=== PATIENT | male | born 1990 | race Caucasian/White ===

== ENCOUNTER 2020-12-14 12:08 | Outpatient (REF) | payer OTHER, SELFPAY ==
[2020-12-14 12:50] LABS: MANUAL DIFF FLAG NO
[2020-12-14 12:56] LABS: Basophils Absolute Auto 0.1 X10*3/uL (0.0-0.2); Basophils Percent Auto 1.1 % (0-2); Eosinophils Absolute Auto 0.4 X10*3/uL (0.0-0.4); Eosinophils Percent Auto 5.1 % (0-4); Hematocrit 44.3 % (42-52); Hemoglobin 14.9 g/dl (14.0-18.0); Imm Gran Abs Auto 0.01 X10*3/uL (0.00-0.03); Imm Gran Pct Auto 0.1 % (0.0-0.4); Lymphocytes Absolute Auto 2.8 X10*3/uL (1.2-4.9); Lymphocytes Percent Auto 34.2 % (20-40); Mean Corpuscular HGB Conc 33.6 g/dl (31.0-36.0); Mean Corpuscular Hemoglobin 29.9 pg (27.0-33.0); Mean Corpuscular Volume 88.8 fL (80-98); Mean Platelet Volume 10.5 fL (9.4-12.4); Monocytes Absolute Auto 0.6 X10*3/uL (0.1-1.2); Monocytes Percent Auto 7.6 % (2-11); Neutrophils Absolute Auto 4.2 X10*3/uL (2.0-8.3); Neutrophils Percent Auto 51.9 % (45-73); Platelet Count 262 X10*3/uL (160-400); Red Blood Count 4.99 X10*6/uL (4.60-5.80); Red Cell Distribution Width 12.6 % (11.0-16.0); White Blood Count 8.1 X10*3/uL (4.8-10.8)
[2020-12-14 13:22] LABS: Anion Gap 11 (12-20); Blood Urea Nitrogen 8 mg/dL (9-16); Calcium 9.9 mg/dL (8.4-10.2); Carbon Dioxide 28 mmol/L (22-29); Chloride 104 mmol/L (96-108); Cholesterol 167 mg/dL; Estimated Glomerular Filt Rate > 60; Glucose Random 69 mg/dL (60-115); Potassium 4.3 mmol/L (3.3-5.1); Sodium 139 mmol/L (135-145)
== END 2020-12-14 12:09 | disposition home or self-care (01) ==
LOC: HO.LAB 12:08
PROVIDERS: PCP Internal Medicine; Visit Provider Internal Medicine
DX: Z00.00 Encounter for general adult medical examination without abnormal findings (principal)
CPT/HCPCS: 36415; 80048; 82465; 85025

== ENCOUNTER 2021-04-05 22:27 | Emergency (ER) | payer OTHER, SELFPAY ==
[2021-04-05 22:29] VITALS: BP 144/83; PULSE 75; RESP 20; TEMP 36.8; O2SAT 100; BMI 22.6
--- NOTE | 2021-04-05 22:47 | ED.GENADULT ---
HPI - General Adult General Chief complaint: General Medical Stated complaint: reaction to anesthesia Time Seen by Provider: 04/05/21 22:38 Source: patient Mode of arrival: ambulatory History of Present Illness HPI narrative: 30-year-old male a past medical history of anxiety, opiate addiction on Suboxone, s/p dental surgery this morning at [facility], presenting to the ED complaining of persistent nausea, vomiting, abdominal discomfort s/p general anesthesia with inability to tolerate p.o. reports has not had anything to eat since yesterday prior to surgery. States had multiple teeth fixed, crowns placed, etc. Reports chills. Denies fever, CP/SOB Onset (ago): hour(s) Related Data Previous Rx's Medication Instructions Recorded ondansetron HCl 4 mg tablet 4 mg PO Q8H PRN #10 tab 04/06/21 (Zofran) Allergies Allergy/AdvReac Type Severity Reaction Status Date / Time No Known Allergies Allergy Unverified 02/24/20 16:59 [No Known Allergies*] Review of Systems Review of Systems: Constitutional: No Fever, + Chills, No Night Sweats, + Fatigue, No Malaise ENT/Mouth: No Ear Pain, No Nasal Congestion, No Hoarseness, No sore throat, No Rhinorrhea, No Swallowing Difficulty, +dental pain Eyes: No Eye Pain, No Swelling, No Redness, No Discharge Cardiovascular: No Chest Pain, No SOB, No Edema, No Palpitations Respiratory: No Cough, No Dyspnea Gastrointestinal: + Nausea, + Vomiting, No Diarrhea, No Constipation, + Abdominal pain Genitourinary: No Dysuria, No Urgency, No Flank Pain, No Urinary Flow Changes Musculoskeletal: No joint pain, No Myalgias, No Joint Swelling Skin: No Skin Lesions, No rash Neuro: No Weakness, No Numbness, No Paresthesias, No Loss of Consciousness, No Dizziness, No Headache Psych: + Anxiety/Panic, No Depression Yes all other systems are reviewed and are negative [facility] Past Medical History Attestation statement: The following information was validated with the patient. Medical History (Updated 04/06/21 @ 00:44 by FORREST Mackey) Anxiety Opiate addiction Surgical History History of dental surgery Social History Social History Alcohol intake: never Patient Tobacco Use Status: Never used Tobacco Use of substances other than those prescribed or required for medical reasons: Yes Substance Use Type: Marijuana Substance Use Frequency: Daily Last Used Substance: Days (ago) Any prior treatment program specific to substance use: Yes (On suboxone) Advance Directives: No Advance Directives Information Provided: No Physical Exam Vital Signs: Vital Signs: Last Vital Signs Temp 98.5 F 04/06/21 00:21 Pulse 81 04/06/21 00:21 Resp 20 04/05/21 22:29 BP 117/72 04/06/21 00:21 Pulse Ox 99 04/06/21 00:21 Body Mass Index 22.6 Const: General: cooperative, alert and awake Orientation/consciousness: patient oriented x3 Limitations: no limitations HENMT: Other: No evidence of intraoral cellulitis, fluctuance, or induration, uvula midline, surgical sites clean, talking in complete sentences handling secretions Head: Yes normal to inspection Ears: hearing grossly normal bilaterally General nose exam: Normal external nose present Face and sinus: Yes normal facial exam Mouth: Normal oral and palatal mucosa present Eyes: General: appearance normal, both eyes and all related structures EOM: EOMs intact bilaterally Neck: Neck: Yes normal visual inspection Resp: Effort & Inspection: normal respiratory effort and no respiratory distress Cardio: Rate: regular rate Heart sounds: S1 normal heart sound present and S2 normal heart sound present GI: Inspection: Yes normal to inspection Palpation (GI): Soft to palpation, Tenderness to palpation present (GI) (diffusely), no guarding and not rigid Skin: Rashes: no rashes Wounds: no wounds Neuro: General: patient oriented x3 Gait exam (Neuro): Normal gait present Extrem: General: Yes normal to inspection Course Course Course Narrative: -0012--mild leukocytosis of 11.9, labs otherwise unremarkable. On re-evaluation patient reports symptomatic improvement, will try p.o. challenge > patient tolerated PO apple juice without nausea or vomiting discussed worrisome signs and symptoms and strict return precautions. Susie sent to pharmacy. Medical Decision Making [facility] Narrative Medical decision making narrative: 30-year-old male a past medical history of anxiety, opiate addiction on Suboxone, s/p dental surgery this morning at [facility], presenting to the ED complaining of persistent nausea, vomiting, abdominal discomfort s/p general anesthesia with inability to tolerate p.o. on exam vital signs stable, abdomen soft, diffusely tender, no rebound or guarding, intraoral mucosa without signs of infection. Concern for dehydration/metabolic abnormality secondary to general anesthesia side effect. Lower concern for appendicitis/diverticulitis/pancreatitis or cholecystitis. Plan: Labs, UA, IVF, symptomatic treatment, re-evaluate, p.o. challenge Lab Data Result diagrams: 04/05/21 22:57 04/05/21 22:57 Labs: Lab Results 04/05/21 04/05/21 Range/Units 22:57 22:57 WBC 11.9 H (4.8-10.8) X10*3/uL RBC 5.02 (4.60-5.80) X10*6/uL Hgb 15.0 (14.0-18.0) g/dl Hct 44.5 (42-52) % MCV 88.6 (80-98) fL MCH 29.9 (27.0-33.0) pg MCHC 33.7 (31.0-36.0) g/dl RDW 12.6 (11.0-16.0) % Plt Count 269 (160-400) X10*3/uL MPV 10.1 (9.4-12.4) fL Immature Gran % (Auto) 0.3 (0.0-0.4) % Neut % (Auto) 85.6 H (45-73) % Lymph % (Auto) 9.2 L (20-40) % [place] % (Auto) 4.6 (2-11) % Eos % (Auto) 0.1 (0-4) % Baso % (Auto) 0.2 (0-2) % Lymph # (Auto) 1.1 L (1.2-4.9) X10*3/uL [place] # (Auto) 0.6 (0.1-1.2) X10*3/uL Eos # (Auto) 0.0 (0.0-0.4) X10*3/uL Baso # (Auto) 0.0 (0.0-0.2) X10*3/uL Abs Immat Gran (auto) 0.04 H (0.00-0.03) X10*3/uL Absolute Neuts (auto) 10.2 H (2.0-8.3) X10*3/uL Absolute Nucleated RBC 0.000 (0.0-0.012) X10*3/uL Nucleated RBC % (auto) 0.0 (0.0-0.2) /100WBC Sodium 141 (135-145) mmol/L Potassium 4.7 (3.3-5.1) mmol/L Chloride 105 (96-108) mmol/L Carbon Dioxide 23 (22-29) mmol/L Anion Gap 18 (12-20) BUN 13 D (9-16) mg/dL Creatinine 0.96 (0.5-1.4) mg/dL Estim Creat Clear Calc 101.9 Estimated GFR > 60 Random Glucose 129 H D (60-115) mg/dL Calcium 10.2 (8.4-10.2) mg/dL Magnesium 1.7 (1.6-2.6) mg/dL Total Bilirubin 0.7 (0.0-1.0) mg/dL Direct Bilirubin 0.3 (0.0-0.5) mg/dL AST 21 (5-37) U/L ALT 17 (0-40) U/L Alkaline Phosphatase 44 (39-117) U/L Total Protein 6.9 (6.5-8.0) g/dL Albumin 4.5 (3.5-5.0) g/dL Lipase 10 (8-78) U/L Discharge Plan Discharge Clinical Impression: Nausea & vomiting Qualifiers: Vomiting type: unspecified Vomiting Intractability: non-intractable Qualified Code(s): R11.2 - Nausea with vomiting, unspecified Patient Disposition: Home, Self-Care Instructions: Acute Nausea and Vomiting (ED) Additional Instructions: Today in the emergency department Continue taking prescribed medications by dentist Susie as antinausea medication, take as needed Make sure your staying hydrated Please with your doctor in 1-2 days Prescriptions: New ondansetron HCl [Zofran] 4 mg tablet 4 mg PO Q8H PRN (Reason: nausea and vomiting) Qty: 10 RF: 0 Referrals: Baljinder Ewing MD [Primary Care Provider] - 2 days
[2021-04-05] MEDS: 0.9 % Sodium Chloride 1,000 ML 999 ML IVCONT ×2 (22:59→23:30)
[2021-04-05 23:04] LABS: Basophils Percent Auto 0.2 % (0-2); Eosinophils Percent Auto 0.1 % (0-4); Hematocrit 44.5 % (42-52); Imm Gran Abs Auto 0.04 X10*3/uL (0.00-0.03); Imm Gran Pct Auto 0.3 % (0.0-0.4); Lymphocytes Absolute Auto 1.1 X10*3/uL (1.2-4.9); Lymphocytes Percent Auto 9.2 % (20-40); MANUAL DIFF FLAG NO; Mean Corpuscular HGB Conc 33.7 g/dl (31.0-36.0); Mean Corpuscular Hemoglobin 29.9 pg (27.0-33.0); Mean Corpuscular Volume 88.6 fL (80-98); Mean Platelet Volume 10.1 fL (9.4-12.4); Monocytes Absolute Auto 0.6 X10*3/uL (0.1-1.2); Monocytes Percent Auto 4.6 % (2-11); Neutrophils Absolute Auto 10.2 X10*3/uL (2.0-8.3); Neutrophils Percent Auto 85.6 % (45-73); Platelet Count 269 X10*3/uL (160-400); Red Blood Count 5.02 X10*6/uL (4.60-5.80); Red Cell Distribution Width 12.6 % (11.0-16.0); White Blood Count 11.9 X10*3/uL (4.8-10.8)
[2021-04-05] MEDS: ondansetron HCL 4 MG/2 ML VIAL IVPUSH (23:08)
[2021-04-05] MEDS: Famotidine/PF 20 MG/2 ML VIAL IVPUSH (23:08)
[2021-04-05 23:31] LABS: Alanine Aminotransferase 17 U/L (0-40); Albumin Level 4.5 g/dL (3.5-5.0); Alkaline Phosphatase 44 U/L (39-117); Anion Gap 18 (12-20); Aspartate Amino Transferase 21 U/L (5-37); Bilirubin Direct 0.3 mg/dL (0.0-0.5); Bilirubin Total 0.7 mg/dL (0.0-1.0); Blood Urea Nitrogen 13 mg/dL (9-16); Calcium 10.2 mg/dL (8.4-10.2); Carbon Dioxide 23 mmol/L (22-29); Chloride 105 mmol/L (96-108); Creatinine Clr Calc Pharmacy 101.9; Estimated Glomerular Filt Rate > 60; Glucose Random 129 mg/dL (60-115); Lipase 10 U/L (8-78); Magnesium 1.7 mg/dL (1.6-2.6); Potassium 4.7 mmol/L (3.3-5.1); Sodium 141 mmol/L (135-145); Total Protein 6.9 g/dL (6.5-8.0)
[2021-04-06 00:21] VITALS: BP 117/72; PULSE 81; TEMP 36.9; O2SAT 99
== END 2021-04-06 01:17 | disposition home or self-care (01) ==
PROVIDERS: Physician Assistant; Emergency Provider Emergency Medicine; PCP Internal Medicine
DX: R11.2 Nausea with vomiting, unspecified (principal); F41.9 Anxiety disorder, unspecified; F11.20 Opioid dependence, uncomplicated; Z98.811 Dental restoration status
CPT/HCPCS: 36415; 80048; 80076; 83690; 83735; 85025; 96361; 96374; 96375; 99284; J2405

== ENCOUNTER 2021-11-19 16:43 | Outpatient (REF) | payer OTHER, SELFPAY ==
[2021-11-19 16:55] LABS: MANUAL DIFF FLAG NO
[2021-11-19 17:47] LABS: Basophils Absolute Auto 0.1 X10*3/uL (0.0-0.2); Basophils Percent Auto 0.8 % (0-2); Eosinophils Absolute Auto 0.4 X10*3/uL (0.0-0.4); Eosinophils Percent Auto 5.1 % (0-4); Hematocrit 41.1 % (42.0-52.0); Hemoglobin 13.6 g/dl (14.0-18.0); Imm Gran Abs Auto 0.02 X10*3/uL (0.00-0.03); Imm Gran Pct Auto 0.2 % (0.0-0.4); Lymphocytes Absolute Auto 3.1 X10*3/uL (1.2-4.9); Lymphocytes Percent Auto 37.1 % (20-40); Mean Corpuscular HGB Conc 33.1 g/dl (31.0-36.0); Mean Corpuscular Hemoglobin 29.2 pg (27.0-33.0); Mean Corpuscular Volume 88.4 fL (80.0-98.0); Mean Platelet Volume 10.5 fL (9.4-12.4); Monocytes Absolute Auto 0.6 X10*3/uL (0.1-1.2); Monocytes Percent Auto 7.5 % (2-11); Neutrophils Absolute Auto 4.1 x10*3/uL (2.0-8.3); Neutrophils Percent Auto 49.3 % (45-73); Platelet Count 294 X10*3/uL (160-400); Red Blood Count 4.65 X10*6/uL (4.60-5.80); Red Cell Distribution Width 12.4 % (11.0-16.0); White Blood Count 8.3 X10*3/uL (4.8-10.8)
[2021-11-19 18:03] LABS: Estimated Average Glucose 103 mg/dL; Hemoglobin A1c % 5.2 %
[2021-11-19 18:09] LABS: Anion Gap 12 (12-20); Blood Urea Nitrogen 12 mg/dL (9-16); Calcium 9.6 mg/dL (8.4-10.2); Carbon Dioxide 28 mmol/L (22-29); Chloride 104 mmol/L (96-108); Estimated Glomerular Filt Rate > 60; Glucose Random 63 mg/dL (60-115); Potassium 3.9 mmol/L (3.3-5.1); Sodium 140 mmol/L (135-145)
[2021-11-19 18:32] LABS: Thyroid Stimulating Hormone 1.54 uIU/mL (0.32-4.0)
[2021-11-19 18:46] LABS: Vitamin B12 430 pg/mL (200-900)
== END 2021-11-19 16:44 | disposition home or self-care (01) ==
LOC: HO.LAB 16:43
PROVIDERS: PCP Internal Medicine; Visit Provider Internal Medicine
DX: R53.83 Other fatigue (principal); Z83.3 Family history of diabetes mellitus
CPT/HCPCS: 36415; 80048; 82607; 83036; 84443; 85025

== ENCOUNTER 2022-06-01 00:24 | Emergency (ER) | payer OTHER, SELFPAY ==
[2022-06-01 00:29] VITALS: BP 131/80; PULSE 82; RESP 16; TEMP 37.1; O2SAT 98; BMI 23.3
--- NOTE | 2022-06-01 00:39 | ED.EAR ---
HPI - Ear Problem General Chief complaint: Ear Problems Stated complaint: Q tip stuck in ear Time Seen by Provider: 06/01/22 00:36 Source: patient History of Present Illness HPI Narrative: Patient states just prior to arrival he went to clean his ear. When he pulled the Q-tip out he noticed there was no head on here. He does not feel foreign body and year but is concerned that it might still be stuck there. No pain or change in hearing. No other complaints He comes to find out if he does indeed have Q-tip foreign body in his external canal Related Data Previous Rx's Medication Instructions Recorded ondansetron HCl 4 mg tablet 4 mg PO Q8H PRN nausea and 04/06/21 (Zofran) vomiting #10 tabs Allergies Allergy/AdvReac Type Severity Reaction Status Date / Time No Known Allergies Allergy Unverified 02/24/20 16:59 [No Known Allergies*] Review of Systems Constitutional: Comments: No fevers or chills ENT: Comments: No ear pain for changes near PMFSH Past Medical History Medical History (Updated 06/01/22 @ 00:42 by Boubacar Roa MD) Anxiety Opiate addiction Surgical History History of dental surgery Social History Social History Alcohol intake: never Patient Tobacco Use Status: Never used Tobacco Substance Use Type: Marijuana Advance Directives: No Advance Directives Information Provided: No Physical Exam Vital Signs: Vital Signs: Last Vital Signs Temp 98.7 F 06/01/22 00:29 Pulse 82 06/01/22 00:29 Resp 16 06/01/22 00:29 BP 131/80 06/01/22 00:29 Pulse Ox 98 06/01/22 00:29 O2 Del Method 06/01/22 00:29 BMI result Body Mass Index 23.3 Const: Other: Awake and alert. No acute distress HEENT: Other: Exam of right ear shows there is no foreign body in the external canal. Tympanic membrane is normal. No cerumen Resp: Other: No respiratory distress Neuro: Other: Ambulates without difficulty Medical Decision Making Medical Decision Making MDM Narrative: No foreign body noted No injury Stable for discharge home Discharge Plan Discharge Clinical Impression: Foreign body in ear Patient Disposition: Home, Self-Care Instructions: Ear Foreign Body (ED) Additional Instructions: Exam showed no evidence of acute tip remaining in her ear. Please return if needed Prescriptions: No Action ondansetron HCl [Zofran] 4 mg tablet 4 mg PO Q8H PRN (Reason: nausea and vomiting) Qty: 10 0RF
--- NOTE | 2022-06-01 00:57 | PC.NURSE ---
pt a&o, no sob or chest pain, pt denies any pain or drainage to the ear. Reviewed discharge instructions with pt. pt verbalized understanding
== END 2022-06-01 00:59 | disposition home or self-care (01) ==
PROVIDERS: Emergency Provider Emergency Medicine; PCP Internal Medicine
DX: T16.1XXA Foreign body in right ear, initial encounter (principal); X58.XXXA Exposure to other specified factors, initial encounter; Y93.E8 Activity, other personal hygiene; Y92.019 Unspecified place in single-family (private) house as the place of occurrence of the external cause; Y99.9 Unspecified external cause status
CPT/HCPCS: 99282

== ENCOUNTER 2022-11-01 15:56 | Outpatient (REF) | payer OTHER, SELFPAY ==
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
== END 2022-11-01 15:57 | disposition home or self-care (01) ==
LOC: HO.XRAY 15:56
PROVIDERS: PCP Internal Medicine; Visit Provider Internal Medicine
DX: R07.81 Pleurodynia (principal)
CPT/HCPCS: 71046

== ENCOUNTER 2023-01-11 03:33 | Emergency (ER) | payer OTHER, SELFPAY ==
[2023-01-11 03:43] VITALS: BP 123/83; PULSE 75; RESP 16; TEMP 36.9; O2SAT 96; BMI 21.1
--- NOTE | 2023-01-11 05:41 | ED.EYEPROB ---
HPI - Eye Problem General Chief complaint: Eye Problems Stated complaint: Eye issue Time Seen by Provider: 01/11/23 05:39 Source: patient Mode of arrival: ambulatory Limitations: no limitations History of Present Illness HPI Narrative: Patient was weed whacking earlier wear contact lenses supposed to wear for 1 week was wearing for 2 weeks felt retention in the right eye did not feel anything going in the right eye Related Data Previous Rx's Medication Instructions Recorded ondansetron HCl 4 mg tablet 4 mg PO Q8H PRN nausea and 04/06/21 (Zofran) vomiting #10 tabs tobramycin 0.3 % eye drops 2 drp ophthalmic (eye) Q4H #5 mL 01/11/23 Allergies Allergy/AdvReac Type Severity Reaction Status Date / Time No Known Allergies Allergy Unverified 02/24/20 16:59 [No Known Allergies*] Review of Systems Review of Systems: Yes all other systems are reviewed and are negative PMFSH Past Medical History Medical History Anxiety Opiate addiction Surgical History History of dental surgery Social History Social History Alcohol intake: never Patient Tobacco Use Status: Never used Tobacco Substance Use Type: Marijuana Advance Directives: No Advance Directives Information Provided: No Physical Exam Vital Signs: Vital Signs: Last Vital Signs Temp 98.4 F 01/11/23 03:43 Pulse 75 01/11/23 03:43 Resp 16 01/11/23 03:43 BP 123/83 01/11/23 03:43 Pulse Ox 96 01/11/23 03:43 O2 Del Method Room Air 01/11/23 03:43 BMI result Body Mass Index 21.1 Eyes: Periorbital: periorbital findings normal Eyelids: Yes eyelids normal Conjunctivae: conjunctival abnormal (Inflamed) right and diffuse Sclerae: sclerae normal Corneas: corneas normal and fluorescein used Pupils: Equal, round and reactive pupils present and Pupil accommodation reflex normal EOM: EOMs intact bilaterally Direct Ophthalmoscopy: anterior chamber normal Neuro: Cranial nerves: Yes Equal, round and reactive pupils present Medical Decision Making Medical Decision Making MDM Narrative: Fluorescein uptake was negative at inflammation and sclera and conjunctiva will discharge patient home on tobramycin eyedrops Discharge Plan Discharge Clinical Impression: Bacterial conjunctivitis Patient Disposition: Home, Self-Care Instructions: Conjunctivitis (ED) Additional Instructions: Do not use the contact lenses longer than supposed to be Use eyedrops as provided 1-2 drops every 4 hours till clear Follow-up with PCP if any concerns Prescriptions: New tobramycin 0.3 % drops 2 drp ophthalmic (eye) Q4H Qty: 5 0RF No Action ondansetron HCl [Zofran] 4 mg tablet 4 mg PO Q8H PRN (Reason: nausea and vomiting) Qty: 10 0RF
== END 2023-01-11 06:10 | disposition home or self-care (01) ==
PROVIDERS: Emergency Provider Internal Medicine; PCP Internal Medicine
DX: H10.9 Unspecified conjunctivitis (principal); H57.11 Ocular pain, right eye
CPT/HCPCS: 99282; 99283

== ENCOUNTER 2024-10-13 15:18 | Outpatient (AMB) | payer OTHER, SELFPAY ==
--- NOTE | 2024-10-13 15:22 | A.OFFPC_ITS ---
Vital Signs 10/13/24 15:24 Height 5 ft 6 in Weight 68.492 kg BMI 24.4 BP 122/80 Blood Pressure Location Lt brachial Position Sitting Pulse 81 Pulse Source Pulse Oximeter Temp 97.6 F Temp Source Axillary Pulse Oximetry (%) 99 Oxygen Delivery Method Room Air Intake Visit Reasons: Rash On Head Allergies No Known Allergies [No Known Allergies*] Allergy (Unverified 02/24/20 16:59) Tobacco use date assessed: 10/13/24 Dental Screening Dental Screen Date: 10/13/24 Did you have a dental visit in the last 12 months?: Yes Did you have a dental problem in the last 6 months where you did not have access to dental care?: No HPI HPI Comments History of Present Illness Details 34 year old male with history of anxiety and history of opiate addiction in remission presents to the office for evaluation of a rash on the back of his scalp ongoing for 4 months. He was evaluated for this by former PCP who recommended avoiding hair clippers as much as possible which he has been doing however rash persists. It is very itchy and uncomfortable. Symptoms worsen when touching the area. He does report several nodules on the scalp without any drainage. He denies hair loss or purulent drainage. Denies history of similar rashes. He has tried hydrocortisone cream and nizoral shampoo without improvement. He is also reporting discomfort and twitching prior to bed in the R ankle and feet. Has tried aloe without improvement. betamethasone dip 0.05 oint cream 0.05 clobetasol 0.025 hair loss? pustules? dr clyde joya touch. haircut? tried cortisone, nizoral shampoo 4 months staying the same itchy, uncomfortable. worse with touching no similar rashes feet and ankles uncomfortable at night R. ?RLS twitch tried aloe [facility] Medical History Opiate addiction Anxiety Surgical History History of dental surgery Family History (Updated 10/13/24 @ 15:27 by Seema Belcher MA) Mother No problems noted. Father No problems noted. Social History Housing: Apartment Alcohol intake: never Patient Tobacco Use Status: Former Tobacco user e-Cigarette/Vaping Use: Former Use Substance Use Type: Marijuana service: No Current occupational status: employed Cognitive needs: No Hearing needs: No Vision needs: No Questionnaire PHQ-9 Over the last 2 weeks, how often have you been bothered by any of the following problems? 1. Little interest or pleasure in doing things: not at all 2. Feeling down, depressed, or hopeless: not at all 3. Trouble falling or staying asleep, or sleeping too much: not at all 4. Feeling tired or having little energy: not at all 5. Poor appetite or overeating: not at all 6. Feeling bad about yourself - or that you are a failure or have let yourself or your family down: not at all 7. Trouble concentrating on things, such as reading the newspaper or watching television: not at all 8. Moving or speaking so slowly that other people could have noticed. Or the opposite - being so fidgety or restless that you have been moving around a lot more than usual: not at all 9. Thoughts that you would be better off or of hurting yourself in some way: not at all Total score: 0 Source: Developed by Drs. Wallace Maher, Rhina Flores, Pawan Grijalva and colleagues, with an educational zuleyka from [employer]. Thrive Questionnaire Date Thrive assessed: 10/13/24 I am a: Patient Within the past 12 months, did the food you bought not last and you didn't have the money to get more?: Never true Within the past 12 months, did you worry whether your food would run out before you got money to buy more?: Never true Do you have trouble paying for medicines?: No Do you have trouble getting transportation to medical appointments?: No Do you have trouble paying your heating and electricity bill?: No Do you have trouble taking care of your child, family member or friend?: No Do you have trouble with day-to-day activities such as bathing, preparing meals, shopping, managing finances, etc.?: No Are you currently unemployed and looking for a job?: No Are you interested in more education?: No THRIVE Score: 0 AUDIT C Alcohol Use Questionnaire (AUDIT-C) 1. How often do you have a drink containing alcohol?: Never 3. How often do you have six or more drinks on one occasion?: Never Total Score: 0 MARCELINA-7 AMB Questionnaire MARCELINA-7 Date MARCELINA - 7 assessed: 10/13/24 Feeling nervous, anxious, or on edge: 0 = Not at all Not being able to stop or control worryin = Not at all Worrying too much about different things: 0 = Not at all Trouble relaxin = Not at all Being so restless that it is hard to sit still: 0 = Not at all Becoming easily annoyed or irritable: 0 = Not at all Feeling afraid as if something awful might happen: 0 = Not at all Total MARCELINA-7 score (0-4 normal; 5-9 mild; 10-14 moderate; 15-21 severe): 0 Source: Developed by Drs. Wallace Maher, Rhina Flores, Pawan Grijalva and colleagues, with an educational zuleyka from [employer]. Review of Systems Const Reports as per HPI Skin/Breast Reports as per HPI Physical exam (Primary Care) Vital Signs: Last Vital Signs Temp 97.6 F 10/13/24 15:24 Pulse 81 10/13/24 15:24 BP 122/80 10/13/24 15:24 Pulse Ox 99 10/13/24 15:24 Oxygen Delivery Method Room Air 10/13/24 15:24 BMI result Body Mass Index 24.4 Tobacco/Smoking Status: Tobacco use Status Tobacco use date assessed 10/13/24 10/13/24 15:28 Patient Tobacco Use Status Former Tobacco user 10/13/24 15:28 e-Cigarette/Vaping Use Former Use 10/13/24 15:28 PHQ-9: PHQ-9 Score PHQ-9: Total score 0 10/13/24 15:33 Thrive Assessment: Date of Thrive Assessment Date Thrive assessed 10/13/24 10/13/24 15:28 Const Other: Constitutional - Awake and Alert, No apparent distress Eyes - PERRLA, EOMI Cardiovascular - S1S2, RRR, No edema Respiratory - Normal lung expansion, Normal respiratory effort, No respiratory distress, CTA bilaterally Extremities - no calf tenderness bilaterally, no swelling Skin - Warm/Dry. Erythematous reticular rash on the from the posterior aspect to the nape of neck. Scattered firm nodular lesions without purulent drainage. No nits or lice seen Neurological - Alert & oriented x3 Coding Level of Care Code New Pt Level 4 (49920) Diagnoses Dermatitis L30.9 Restless leg Assessment & Plan Assessment & Plan (1) Dermatitis: Code(s): L30.9 - Dermatitis, unspecified Category: Medical Plan: Unclear etiology. Possible pseudofolliculitis given nodules/pustules scattered on the scalp but does not fit typical demographic and does not explain erythematous reticular rash of the posterior scalp. No flaking or scaling or plaques to suggest a typical seborrheic dermatitis, eczema, or psoriasis. Given history of opiate use and presence of scattered nodules/pustular lesions, cover for possible MRSA iwth clindamycin gel. Will also trial kenalog cream given pruritus and irritation. Possible fungal componence and will treat with ketoconazole shampoo. Recommend avoiding close shaving/clipping of the scalp as previously recommended. (2) Restless leg: Code(s): G2.81 - Restless legs syndrome Category: Medical Plan: Will check electrolyte levels including magnesium. Trial magnesium oxide at bedtime. Also recommend going to bed when tired rather than waiting and becoming overtired. Avoid alcohol, caffeine. Manage stress and anxiety. Will also check vitamin B12 levels. Plan Follow up in one month if needed. Labs to be completed following visit. Trial topical medications as prescribed for scalp rash. If no improvements, consider referral to dermatology. Trial magnesium for RLS. Orders: Orders Basic Metabolic Panel 10/14/24 - Restless legs syndrome Magnesium 10/14/24. - Restless legs syndrome TSH reflex Free T4 10/14/24 G2.81 - Restless legs syndrome Complete Blood Count Auto Diff 10/14/24. - Restless legs syndrome Vitamin B12 10/14/24. - Restless legs syndrome Lipid Panel 10/14/24 L30.9 - Dermatitis, unspecified, Z13.220 - Encounter for screening for lipoid disorders Medications: New ketoconazole 2% Massage onto wet scalp and leave on for 5 minutes before rinsing. Use twice weekly x 4 weeks 1 appl topical 2XW 120 mL 0RF magnesium oxide 400 mg PO BEDTIME 90 tabs 1RF clindamycin phosphate 1% Apply small amount of ointment to affected areas on scalp twice daily 1 appl topical BID 60 grams 1RF triamcinolone acetonide 0.1% 1 appl twice daily x 1 week, then 1 application daily; 30 grams 1RF Discontinued ondansetron HCl (Zofran) Discontinued Reason: Patient no longer taking 4 mg PO Q8H PRN 10 tabs 0RF nausea and vomiting
[2024-10-13 15:24] VITALS: BP 122/80; PULSE 81; TEMP 36.4; O2SAT 99; BMI 24.4
== END 2024-10-13 15:45 | disposition home or self-care (01) ==
LOC: HO.HMCHD 15:18
PROVIDERS: PCP Internal Medicine; Visit Provider Physician Assistant
DX: L30.9 Dermatitis, unspecified (principal); G25.81 Restless legs syndrome

== ENCOUNTER → 2024-10-13 15:18 | Outpatient (BNVA) | payer BC, SELFPAY | PROVIDERS: PCP Internal Medicine; Visit Provider Physician Assistant | DX: R21 Rash and other nonspecific skin eruption (principal); G25.81 Restless legs syndrome | CPT/HCPCS: 96127; 99202 ==

== ENCOUNTER 2024-10-14 14:24 | Outpatient (REF) | payer BC, SELFPAY ==
[2024-10-14 14:42] LABS: MANUAL DIFF FLAG NO
[2024-10-14 14:50] LABS: Basophils Absolute Auto 0.1 X10*3/uL (0.0-0.2); Basophils Percent Auto 0.8 % (0-2); Eosinophils Absolute Auto 0.1 X10*3/uL (0.0-0.4); Eosinophils Percent Auto 1.8 % (0-4); Hematocrit 47.2 % (42.0-52.0); Hemoglobin 16.2 g/dl (14.0-18.0); Imm Gran Abs Auto 0.02 X10*3/uL (0.00-0.03); Imm Gran Pct Auto 0.3 % (0.0-0.4); Lymphocytes Absolute Auto 2.3 X10*3/uL (1.2-4.9); Lymphocytes Percent Auto 31.4 % (20-40); Mean Corpuscular HGB Conc 34.3 g/dl (31.0-36.0); Mean Corpuscular Hemoglobin 30.5 pg (27.0-33.0); Mean Corpuscular Volume 88.9 fL (80.0-98.0); Mean Platelet Volume 10.2 fL (9.4-12.4); Monocytes Absolute Auto 0.5 X10*3/uL (0.1-1.2); Monocytes Percent Auto 6.7 % (2-11); Neutrophils Absolute Auto 4.3 x10*3/uL (2.0-8.3); Platelet Count 297 X10*3/uL (160-400); Red Blood Count 5.31 X10*6/uL (4.60-5.80); White Blood Count 7.3 X10*3/uL (4.8-10.8)
[2024-10-14 15:23] LABS: Anion Gap 11 (12-20); Blood Urea Nitrogen 12 mg/dL (9-16); Calcium 9.5 mg/dL (8.4-10.2); Carbon Dioxide 27 mmol/L (22-29); Chloride 107 mmol/L (96-108); Cholesterol 195 mg/dL (<200); Estimated Glomerular Filt Rate > 60; Glucose Random 96 mg/dL (60-115); HDL Cholesterol 43 mg/dL (>40); LDL Cholesterol Calculated 126 mg/dL (<100); Potassium 4.3 mmol/L (3.3-5.1); Sodium 141 mmol/L (135-145); Triglycerides 131 mg/dL (<150)
[2024-10-14 15:36] LABS: TSH reflex Free T4 0.68 uIU/mL (0.32-4.0)
[2024-10-14 15:44] LABS: Vitamin B12 584 pg/mL (200-900)
== END 2024-10-14 14:25 | disposition home or self-care (01) ==
LOC: HO.LAB 14:24
PROVIDERS: PCP Physician Assistant; Visit Provider Physician Assistant
DX: G25.81 Restless legs syndrome (principal); L30.9 Dermatitis, unspecified; Z13.220 Encounter for screening for lipoid disorders; Z13.6 Encounter for screening for cardiovascular disorders
CPT/HCPCS: 36415; 80048; 80061; 82607; 83735; 84443; 85025